=== PATIENT | female | born 1995 | race Caucasian/White ===

== ENCOUNTER → 2016-12-01 | Day surgery (SDC) | payer BC ==
[~2016-12-01] MED LIST: BUPIVACAINE HCL PF 0.25% 30 ML VIAL ONE; KETOROLAC TROMETHAMINE 30 MG/ML (IVP) VIAL IV PUSH ONE; LACTATED RINGER'S 1000 ML INJ 1,000 ML ONE; MACR100C PO; MIDAZOLAM HCL 2 MG/2 ML VIAL ONE; ONDANSETRON HCL 4 MG/2 ML VIAL IV PUSH ONE; PROPOFOL 200 MG/20 ML AMP IV ONE; Z.0.BCPILL PO; ceFAZolin 2 GM PREMIX 50 ML ONE
--- NOTE | 2016-12-02 08:50 | MP ---
cc: HEIDY NIX M.D. DATE OF SURGERY: 12/01/2016 PREOPERATIVE DIAGNOSIS Patient with high-grade cervical dysplasia, FITO II documented at the 9 o'clock position of the cervix. PROCEDURE Cold knife excision of the 9 o'clock position of the cervix, modified cone biopsy. POSTOPERATIVE DIAGNOSIS Patient with high-grade cervical dysplasia, FITO II documented at the 9 o'clock position of the cervix, pathology pending. ANESTHESIA General with LMA placement. ESTIMATED BLOOD LOSS None. DRAINS None INDICATION FOR PROCEDURE Patient with persistent high-grade cervical dysplasia, documented FITO II on cervical biopsy. The presence of high-risk HPV RNA documented by cytology testing. The patient received Ancef 2 grams prophylactically. DESCRIPTION OF PROCEDURE The patient was taken to the operating room under general anesthesia, had an LMA placed. She was carefully positioned in dorsolithotomy position using candy-cane stirrups with sequentials placed on lower extremities. Time-out was conducted and agreed by all present in the room. She was prepped and draped. Exam of the cervix was midline, cervix was small. Lugol's solution was applied with no focal staining abnormalities noted. Previous mapping of the cervix demonstrated dysplasia and colposcopic findings consistent with high-grade at the 9 o'clock position. The patient has an IUD in place. The IUD string was carefully placed inside the cervical canal to avoid complications with the procedure. 0.25% plain Marcaine was injected at the 3 and 9 o'clock position. A total of 10 ccs was injected and the #11 blade was used to take an elliptical shaped biopsy incorporating the transitional zone around the 9 o'clock and 6 o'clock position of the cervix. A #1 silk suture was placed at the 9 o'clock position of the biopsy specimen. The biopsy bed site on the cervix was then cauterized using the Bovie. Good result was noted. No active bleeding or hematoma. Monsel solution was applied at the termination of the case with excellent hemostasis documented. The IUD string was easily brought down through the exocervix and visible at the end of the case. At the completion of the case final counts were correct. The patient was stable. There was no active bleeding. Full count was correct at the completion. The patient was then taken to the recovery room extubated on room air. MD YEVGENIY Carter/TLL /9:13 AM /8:40 AM
== END | disposition home or self-care (01) ==
LOC: ESDC 06:38
PROVIDERS: ATTEND Obstetrics & Gynecology
DX: R87.613 High grade squamous intraepithelial lesion on cytologic smear of cervix (HGSIL) (principal)
CPT/HCPCS: 00940; 57520; 88307; J0690; J1885; J2250; J2405; J3010; J7120